=== PATIENT | female | born 1970 | race Caucasian/White ===

== ENCOUNTER → 2016-09-08 | Outpatient (CLI) | payer OTHER ==
[~2016-09-08] MED LIST: AMOXICILLIN500 MG PO; DIFLUCAN150 MG PO
== END | disposition home or self-care (01) ==
LOC: CARD 10:08
DX: I34.1 Nonrheumatic mitral (valve) prolapse (principal)

== ENCOUNTER → 2020-07-05 | Outpatient (CLI) | payer OTHER | END | disposition home or self-care (01) | LOC: COVID19 11:12 | PROVIDERS: ATTEND Family Medicine | DX: U07.1 COVID-19 (principal) ==